=== PATIENT | male | born 1960 | race Two or more races ===

== ENCOUNTER 2017-08-02 08:43 | Emergency (ER) | payer MEDICARE ==
[~2017-08-02] VITALS: Ht 172.7 cm; Wt 75.5 kg
[2017-08-02 08:44] VITALS: BP 130/94
[2017-08-02] MEDS ORDERED: LISI5TAB7 PO (09:04)
[2017-08-02] MEDS ORDERED: SITA100T PO (09:04)
== END 2017-08-02 09:30 | disposition home or self-care (01) ==
LOC: ED 09:25
DX: S01.312D Laceration without foreign body of left ear, subsequent encounter (principal); E11.9 Type 2 diabetes mellitus without complications; X58.XXXD Exposure to other specified factors, subsequent encounter
CPT/HCPCS: 99281

== ENCOUNTER 2017-08-06 08:05 | Emergency (ER) | payer MEDICARE ==
[~2017-08-06] VITALS: Ht 172.7 cm; Wt 76.6 kg
[~2017-08-06 08:05] MED LIST: LISI5TAB7 PO; SITA100T PO
[2017-08-06 08:08] VITALS: BP 148/93
[2017-08-06] MEDS ORDERED: BACITRACIN ZINC OINT 500U/GM, 0.9 GM ONE (08:28)
[2017-08-06] MEDS ORDERED: KETOROLAC 30 MG/1 ML ONE (08:29)
[2017-08-06] MEDS ORDERED: KETOROLAC 30 MG/1 ML IM ONE (08:30)
== END 2017-08-06 10:15 | disposition home or self-care (01) ==
LOC: ED 09:01
DX: S01.312D Laceration without foreign body of left ear, subsequent encounter (principal)
CPT/HCPCS: 96372; 99283; J1885; 96374

== ENCOUNTER 2017-12-20 08:59 | Emergency (ER) | payer MEDICARE ==
[~2017-12-20] VITALS: Ht 172.7 cm; Wt 74.7 kg
[2017-12-20] MEDS ORDERED: SODIUM CHLORIDE FLUSH 10ML SYR IVF ONE (10:30)
[2017-12-20] MEDS ORDERED: DIPH,PERTUSS(ACELL),TET VAC/PF 0.5 ML IM-VACC ONE ×2 (10:30→10:51)
[2017-12-20] MEDS ORDERED: AMPICILLIN/SULBACTAM 3 GM in SODIUM CHLORIDE 0.9% 100 ML IVPB ONE (10:30)
[2017-12-20] MEDS ORDERED: MORPHINE SULFATE 4 MG/ML, 1ML ONE ×2 (10:51→11:37)
[2017-12-20] MEDS: MORPHINE SULFATE 4 MG/ML, 1ML IV PRN ×2 (10:59→11:42)
[2017-12-20 11:05] LABS: BASOPHILS # (AUTO) 0.04 x10^3/uL (0-0.1); BASOPHILS % (AUTO) 1 % (0-1); EOSINOPHILS # (AUTO) 0.08 x10^3/uL (0-0.4); EOSINOPHILS % (AUTO) 1 % (1-7); HCT (SEDRATE) 45.1 % (39.2-51.8); LYMPHOCYTES # (AUTO) 1.31 x10^3/uL (1-3.4); LYMPHOCYTES % (AUTO) 15 % (22-44); MD NO; MEAN CORPUSCULAR HEMOGLOBIN 33.4 pg (27.5-34.5); MEAN CORPUSCULAR HGB CONC 35.2 g/dL (33.2-36.2); MEAN CORPUSCULAR VOLUME 94.9 fL (81-97); MEAN PLATELET VOLUME 8.7 fL (7.4-10.4); MONOCYTES # (AUTO) 0.85 x10^3/uL (0.2-0.8); MONOCYTES % (AUTO) 10 % (2-9); NEUTROPHILS # (AUTO) 6.36 x10^3/uL (1.8-6.8); NEUTROPHILS % (AUTO) 74 % (42-75); PLATELET COUNT 305 x10^3/uL (130-400); RED BLOOD COUNT 4.76 x10^6/uL (4.38-5.82); RED CELL DISTRIBUTION WIDTH 13.4 % (9.4-14.8)
[2017-12-20 11:17] LABS: ALBUMIN 3.4 g/dL (3.4-5.0); ANION GAP 8 mmol/L (5-15); CALCIUM 8.5 mg/dL (8.5-10.1); CHLORIDE 103 mmol/L (98-107)
[2017-12-20 11:43] LABS: SEDIMENTATION RATE 24 mm/hr (0-10)
[2017-12-20] MEDS ORDERED: AMPICILLIN/SULBACTAM 3 GM in SODIUM CHLORIDE 0.9% 100 ML IV ONE (12:30)
[2017-12-20 13:00] VITALS: BP 127/81
== END 2017-12-20 13:04 | disposition home or self-care (01) ==
LOC: ED 12:50
DX: L03.031 Cellulitis of right toe (principal); L89.892 Pressure ulcer of other site, stage 2; E11.9 Type 2 diabetes mellitus without complications; F17.200 Nicotine dependence, unspecified, uncomplicated
CPT/HCPCS: 36415; 73660; 80048; 82040; 83605; 85025; 85651; 86140; 87040; 90471; 90715; 96365; 96375; 96376; 99285; J0295

== ENCOUNTER 2017-12-26 08:49 | Emergency (ER) | payer MEDICARE ==
[~2017-12-26] VITALS: Ht 172.7 cm; Wt 75.2 kg
[2017-12-26 08:53] VITALS: BP 116/81
[2017-12-26] MEDS ORDERED: SITA100T PO (09:37)
[2017-12-26] MEDS ORDERED: METF500T4 PO (09:37)
[2017-12-26] MEDS ORDERED: GLIP10TA13 PO (09:37)
[2017-12-26] MEDS ORDERED: AMPICILLIN/SULBACTAM 3 GM IM ONE (10:00)
== END 2017-12-26 11:24 | disposition home or self-care (01) ==
LOC: ED 10:49
DX: L03.031 Cellulitis of right toe (principal); E11.621 Type 2 diabetes mellitus with foot ulcer; F17.200 Nicotine dependence, unspecified, uncomplicated
CPT/HCPCS: 73660; 96372; 99284; J0295; 99283

== ENCOUNTER 2018-01-02 21:37 | Emergency (ER) | payer MEDICARE ==
[~2018-01-02] VITALS: Ht 172.7 cm; Wt 75.0 kg
[~2018-01-02 21:37] MED LIST changes: +GLIP10TA13 PO; +METF500T4 PO
[2018-01-02 21:40] VITALS: BP 146/76
== END 2018-01-02 22:21 | disposition left against medical advice (07) ==
LOC: ED 22:15
DX: S90.821A Blister (nonthermal), right foot, initial encounter (principal); E11.9 Type 2 diabetes mellitus without complications; Z53.21 Procedure and treatment not carried out due to patient leaving prior to being seen by health care provider; X58.XXXA Exposure to other specified factors, initial encounter; Y93.89 Activity, other specified; Y92.89 Other specified places as the place of occurrence of the external cause; Y99.8 Other external cause status

== ENCOUNTER 2018-01-04 07:15 | Inpatient (IN) | payer MEDICARE ==
[~2018-01-04] VITALS: Ht 172.7 cm; Wt 79.1 kg
[~2018-01-04 07:15] MED LIST changes: -METF500T4 PO; +METF500T5 PO
[2018-01-04] MEDS ORDERED: HYDROcodone/APAP 5/325 TABLET ONE (07:52)
[2018-01-04] MEDS ORDERED: SODIUM CHLORIDE 0.9% 1,000 ML IV ONE (07:53)
[2018-01-04] MEDS ORDERED: VANCOMYCIN PER PHARMACY MC ONE (08:00)
[2018-01-04] MEDS ORDERED: AMPICILLIN/SULBACTAM 3 GM in SODIUM CHLORIDE 0.9% 100 ML IVPB ONE (08:00)
[2018-01-04] MEDS ORDERED: SODIUM CHLORIDE FLUSH 10ML SYR IVF ONE (08:00)
[2018-01-04] MEDS ORDERED: HYDROcodone/APAP 5/325 TABLET PO ONE (08:00)
[2018-01-04 08:23] LABS: ALANINE AMINOTRANSFERASE 22 U/L (12-78); ALBUMIN 3.6 g/dL (3.4-5.0); ANION GAP 5 mmol/L (5-15); CALCIUM 8.8 mg/dL (8.5-10.1); CHLORIDE 99 mmol/L (98-107); CREATININE 1.13 mg/dL (0.7-1.3)
[2018-01-04 08:26] LABS: BASOPHILS # (AUTO) 0.04 x10^3/uL (0-0.1); BASOPHILS % (AUTO) 1 % (0-1); EOSINOPHILS % (AUTO) 2 % (1-7); HCT (SEDRATE) 45.4 % (39.2-51.8); LYMPHOCYTES # (AUTO) 1.13 x10^3/uL (1-3.4); LYMPHOCYTES % (AUTO) 16 % (22-44); MD NO; MEAN CORPUSCULAR HEMOGLOBIN 32.5 pg (27.5-34.5); MEAN CORPUSCULAR HGB CONC 34.2 g/dL (33.2-36.2); MEAN CORPUSCULAR VOLUME 95.1 fL (81-97); MEAN PLATELET VOLUME 8.7 fL (7.4-10.4); MONOCYTES % (AUTO) 10 % (2-9); NEUTROPHILS # (AUTO) 5.04 x10^3/uL (1.8-6.8); NEUTROPHILS % (AUTO) 72 % (42-75); PLATELET COUNT 344 x10^3/uL (130-400); RED BLOOD COUNT 4.78 x10^6/uL (4.38-5.82); RED CELL DISTRIBUTION WIDTH 12.9 % (9.4-14.8)
[2018-01-04 08:30] LABS: ALKALINE PHOSPHATASE 106 U/L (45-117); BILIRUBIN,TOTAL 0.6 mg/dL (0.2-1.0)
[2018-01-04] MEDS ORDERED: VANCOMYCIN 1,500 MG in SODIUM CHLORIDE 0.9% 250 ML IV ONE (08:30)
[2018-01-04 08:36] LABS: HEMOGLOBIN A1C 9.8 % (4.2-6.3)
[2018-01-04] MEDS ORDERED: GADOBUTROL 7.5 MMOL/7.5 ML PFS ONE (08:44)
[2018-01-04] MEDS ORDERED: MORPHINE SULFATE 4 MG/ML, 1ML ONE (08:50)
[2018-01-04] MEDS ORDERED: MORPHINE SULFATE 4 MG/ML, 1ML IVPush ONE (09:00)
[2018-01-04 09:05] LABS: SEDIMENTATION RATE 24 mm/hr (0-10)
[2018-01-04] MEDS ORDERED: LISI-170 PO (09:31)
[2018-01-04 10:20] VITALS: BP 130/80
[2018-01-04] MEDS ORDERED: DEXTROSE 4 GM TAB.CHEW PO PRN (10:30)
[2018-01-04] MEDS ORDERED: BISACODYL 10 MG SUPP PR PRN (10:30)
[2018-01-04] MEDS ORDERED: HEPARIN 5,000 UNITS/ML, 1ML SQ SCH (10:30)
[2018-01-04] MEDS ORDERED: DEXTROSE 50%, 50ML SYRINGE IVPush PRN (10:30)
[2018-01-04] MEDS ORDERED: VANCOMYCIN PER PHARMACY MC PRN (10:30)
[2018-01-04] MEDS ORDERED: GLUCAGON 1 MG IM PRN (10:30)
[2018-01-04] MEDS ORDERED: hydrALAzine 20 MG/ML, 1ML IVPush PRN (10:30)
[2018-01-04 10:58] LABS: INTERNATIONAL NORMALIZED RATIO 1.04 (0.93-1.1); PROTHROMBIN TIME 10.7 Seconds (9.6-11.5)
[2018-01-04] MEDS ORDERED: PHARMACOKINETIC CONSULTATION MC ONE (11:00)
[2018-01-04] MEDS ORDERED: PHARMACOKINETIC MONITORING MC PRN (11:00)
[2018-01-04] MEDS: NICOTINE 21 MG/24 HR PATCH.TD24 TD SCH (11:11)
[2018-01-04] MEDS: SODIUM CHLORIDE FLUSH 10ML SYR IVF SCH ×2 (11:11→23:04)
[2018-01-04] MEDS: SODIUM CHLORIDE 0.9% 1,000 ML IV SCH ×3 (11:11→23:49)
[2018-01-04] MEDS: PIPERACILLIN/TAZO/PMX 3.375GM 50 ML IV SCH ×2 (11:44→23:04)
[2018-01-04] MEDS: INSULIN LISPRO 100 UNITS/ML, PEN SQ-INSULIN SCH ×3 (11:47→23:47)
[2018-01-04] MEDS: morphine SULFATE 10 MG/ML, 1ML IVPush PRN ×3 (11:47→23:04)
[2018-01-04 12:47] VITALS: BP 152/87
[2018-01-04] MEDS ORDERED: OXYcodone IR 5MG TABLET ONE (13:53)
[2018-01-04] MEDS: OXYcodone IR 5MG TABLET PO PRN ×3 (13:59→23:05)
[2018-01-04] MEDS ORDERED: MIDAZOLAM 1 MG/ML, 2ML ONE (19:15)
[2018-01-04] MEDS ORDERED: FENTANYL PF 100 MCG/2ML ONE ×2 (19:16→20:12)
[2018-01-04] MEDS ORDERED: PROPOFOL 10 MG/ML, 20ML ONE (19:24)
[2018-01-04] MEDS ORDERED: SUCCINYLCHOLINE 20 MG/ML, 10ML ONE (19:24)
[2018-01-04] MEDS ORDERED: CEFAZOLIN 1,000 MG ONE (19:24)
[2018-01-04] MEDS ORDERED: BUPIVACAINE/PF 0.25% INFIL ONE (19:30)
[2018-01-04] MEDS ORDERED: BUPIVACAINE/PF 0.25% ONE (19:44)
[2018-01-04] MEDS ORDERED: EPINEPHRINE 1 MG/ML, 1ML ONE (19:44)
[2018-01-04] MEDS ORDERED: HYDROmorphone 1 MG/ML, 1ML IV PRN (20:00)
[2018-01-04] MEDS ORDERED: hydrALAzine 20 MG/ML, 1ML IV PRN (20:00)
[2018-01-04] MEDS ORDERED: KETOROLAC 30 MG/1 ML IV PRN (20:00)
[2018-01-04] MEDS ORDERED: OXYcodone 5 MG/5 ML ORAL.SOL UDC PO PRN (20:00)
[2018-01-04] MEDS ORDERED: MEPERIDINE/PF 25MG/0.5ML IVPush PRN (20:00)
[2018-01-04] MEDS ORDERED: METOCLOPRAMIDE 5 MG/ML, 2ML IV PRN (20:00)
[2018-01-04] MEDS ORDERED: ALBUTEROL SULFATE 2.5 MG/3 ML NPPB PRN (20:00)
[2018-01-04] MEDS ORDERED: LABETALOL 5MG/ML, 20ML IV PRN (20:00)
[2018-01-04] MEDS ORDERED: ONDANSETRON 2MG/ML, 2ML IVPush PRN (20:00)
[2018-01-04] MEDS ORDERED: PROMETHAZINE 25 MG/ML, 1ML IV PRN (20:00)
[2018-01-04] MEDS ORDERED: OXYcodone 5 MG/5 ML ORAL.SOL UDC ONE (20:12)
[2018-01-04] MEDS: FENTANYL PF 100 MCG/2ML IV PRN ×2 (20:15→20:25)
[2018-01-04] MEDS ORDERED: HYDROmorphone 2 MG/ML, 1ML ONE (20:23)
[2018-01-04 20:59] VITALS: BP 128/86
[2018-01-04] MEDS: VANCOMYCIN 1,400 MG in SODIUM CHLORIDE 0.9% 250 ML IV SCH (23:48)
[2018-01-04] MEDS: INSULIN GLARGINE 100 UNITS/ML, PEN SQ-INSULIN SCH (23:48)
[2018-01-05] MEDS: HEPARIN 5,000 UNITS/ML, 1ML SQ SCH ×2 (00:50→07:37)
[2018-01-05] MEDS: morphine SULFATE 10 MG/ML, 1ML IVPush PRN ×2 (02:15→04:57)
[2018-01-05 02:29] VITALS: BP 113/70
[2018-01-05] MEDS: OXYcodone IR 5MG TABLET PO PRN ×5 (03:05→21:04)
[2018-01-05 05:08] VITALS: BP 129/82
[2018-01-05 05:36] LABS: BASOPHILS # (AUTO) 0.04 x10^3/uL (0-0.1); BASOPHILS % (AUTO) 1 % (0-1); EOSINOPHILS # (AUTO) 0.26 x10^3/uL (0-0.4); EOSINOPHILS % (AUTO) 3 % (1-7); LYMPHOCYTES # (AUTO) 1.75 x10^3/uL (1-3.4); LYMPHOCYTES % (AUTO) 21 % (22-44); MD NO; MEAN CORPUSCULAR HEMOGLOBIN 32.6 pg (27.5-34.5); MEAN CORPUSCULAR HGB CONC 33.9 g/dL (33.2-36.2); MEAN CORPUSCULAR VOLUME 96.2 fL (81-97); MEAN PLATELET VOLUME 8.8 fL (7.4-10.4); MONOCYTES # (AUTO) 0.82 x10^3/uL (0.2-0.8); MONOCYTES % (AUTO) 10 % (2-9); NEUTROPHILS # (AUTO) 5.65 x10^3/uL (1.8-6.8); NEUTROPHILS % (AUTO) 66 % (42-75); PLATELET COUNT 311 x10^3/uL (130-400); RED BLOOD COUNT 4.21 x10^6/uL (4.38-5.82); RED CELL DISTRIBUTION WIDTH 12.7 % (9.4-14.8)
[2018-01-05 05:45] LABS: CHLORIDE 104 mmol/L (98-107)
[2018-01-05] MEDS: PIPERACILLIN/TAZO/PMX 3.375GM 50 ML IV SCH ×2 (06:30→16:34)
[2018-01-05] MEDS: SODIUM CHLORIDE 0.9% 1,000 ML IV SCH ×2 (06:31→16:39)
[2018-01-05 06:44] LABS: ANION GAP 10 mmol/L (5-15); CALCIUM 8.4 mg/dL (8.5-10.1); CHOL/HDL RATIO 1.6; CHOLESTEROL, TOTAL 118 mg/dL (140-239); CREATININE 0.88 mg/dL (0.7-1.3); HDL CHOL % 64 % (26-37); HDL CHOLESTEROL (DIRECT) 75 mg/dL (40-60); LDL CHOLESTEROL,CALCULATED 27 mg/dL (54-169); LDL/HDL RATIO 0.4 (0.5-3.0); TRIGLYCERIDES 79 mg/dL (50-200); VLDL CHOLESTEROL 16 mg/dL (0-25)
[2018-01-05 07:14] VITALS: BP 125/79
[2018-01-05] MEDS ORDERED: HYDROmorphone 1 MG/ML, 1ML IV ONE (07:30)
[2018-01-05] MEDS ORDERED: HYDROmorphone 2 MG/ML, 1ML ONE ×4 (07:33→19:22)
[2018-01-05] MEDS: LISINOPRIL 10 MG TABLET PO SCH (07:37)
[2018-01-05] MEDS: SODIUM CHLORIDE FLUSH 10ML SYR IVF SCH ×2 (07:37→21:16)
[2018-01-05] MEDS: INSULIN LISPRO 100 UNITS/ML, PEN SQ-INSULIN SCH ×4 (07:43→21:16)
[2018-01-05] MEDS ORDERED: HYDROmorphone 1 MG/ML, 1ML IM PRN (09:00)
[2018-01-05] MEDS: HYDROmorphone 1 MG/ML, 1ML IV PRN ×3 (10:06→19:26)
[2018-01-05] MEDS: NICOTINE 21 MG/24 HR PATCH.TD24 TD SCH (10:07)
[2018-01-05] MEDS: VANCOMYCIN 1,400 MG in SODIUM CHLORIDE 0.9% 250 ML IV SCH (11:46)
[2018-01-05 12:35] VITALS: BP 111/68
[2018-01-05 20:58] VITALS: BP 110/69
[2018-01-05] MEDS: ACETAMINOPHEN 325 MG TABLET PO PRN (21:04)
[2018-01-05] MEDS: INSULIN GLARGINE 100 UNITS/ML, PEN SQ-INSULIN SCH (21:16)
[2018-01-06] MEDS ORDERED: HYDROmorphone 2 MG/ML, 1ML ONE ×6 (00:07→21:29)
[2018-01-06] MEDS: PIPERACILLIN/TAZO/PMX 3.375GM 50 ML IV SCH ×3 (00:12→16:22)
[2018-01-06] MEDS: HYDROmorphone 1 MG/ML, 1ML IV PRN ×6 (00:14→21:32)
[2018-01-06] MEDS: SODIUM CHLORIDE 0.9% 1,000 ML IV SCH ×3 (00:19→19:44)
[2018-01-06] MEDS: VANCOMYCIN 1,800 MG in SODIUM CHLORIDE 0.9% 250 ML IV SCH ×2 (00:54→13:13)
[2018-01-06 01:48] VITALS: BP 123/77
[2018-01-06] MEDS: OXYcodone IR 5MG TABLET PO PRN ×5 (02:26→20:01)
[2018-01-06] MEDS: POLYETHYLENE GLYCOL 17 GM PACKET PO PRN ×2 (02:32→20:37)
[2018-01-06 04:50] LABS: BASOPHILS # (AUTO) 0.03 x10^3/uL (0-0.1); BASOPHILS % (AUTO) 0 % (0-1); EOSINOPHILS # (AUTO) 0.29 x10^3/uL (0-0.4); EOSINOPHILS % (AUTO) 4 % (1-7); LYMPHOCYTES # (AUTO) 1.66 x10^3/uL (1-3.4); LYMPHOCYTES % (AUTO) 25 % (22-44); MD NO; MEAN CORPUSCULAR HEMOGLOBIN 32.3 pg (27.5-34.5); MEAN CORPUSCULAR HGB CONC 33.7 g/dL (33.2-36.2); MEAN CORPUSCULAR VOLUME 95.9 fL (81-97); MEAN PLATELET VOLUME 8.4 fL (7.4-10.4); MONOCYTES # (AUTO) 0.78 x10^3/uL (0.2-0.8); MONOCYTES % (AUTO) 12 % (2-9); NEUTROPHILS # (AUTO) 3.85 x10^3/uL (1.8-6.8); NEUTROPHILS % (AUTO) 58 % (42-75); PLATELET COUNT 322 x10^3/uL (130-400); RED CELL DISTRIBUTION WIDTH 12.9 % (9.4-14.8)
[2018-01-06 04:58] LABS: ALBUMIN 2.7 g/dL (3.4-5.0); ANION GAP 5 mmol/L (5-15); CALCIUM 8.8 mg/dL (8.5-10.1); CHLORIDE 106 mmol/L (98-107); CREATININE 0.82 mg/dL (0.7-1.3)
[2018-01-06] MEDS: INSULIN LISPRO 100 UNITS/ML, PEN SQ-INSULIN SCH ×4 (07:00→20:36)
[2018-01-06 07:13] VITALS: BP 121/79
[2018-01-06] MEDS: SODIUM CHLORIDE FLUSH 10ML SYR IVF SCH ×2 (07:44→20:36)
[2018-01-06] MEDS: LISINOPRIL 10 MG TABLET PO SCH (07:44)
[2018-01-06] MEDS ORDERED: LIDOCAINE-MPF 1%, 2ML ONE (09:19)
[2018-01-06] MEDS: NICOTINE 21 MG/24 HR PATCH.TD24 TD SCH (10:30)
[2018-01-06] MEDS: ACETAMINOPHEN 325 MG TABLET PO PRN (10:54)
[2018-01-06 12:53] VITALS: BP 123/79
[2018-01-06 19:21] VITALS: BP 142/87
[2018-01-06] MEDS: INSULIN GLARGINE 100 UNITS/ML, PEN SQ-INSULIN SCH (20:36)
[2018-01-07] MEDS: OXYcodone IR 5MG TABLET PO PRN ×6 (00:15→20:50)
[2018-01-07] MEDS: PIPERACILLIN/TAZO/PMX 3.375GM 50 ML IV SCH ×3 (00:23→16:12)
[2018-01-07] MEDS: VANCOMYCIN 1,800 MG in SODIUM CHLORIDE 0.9% 250 ML IV SCH ×2 (01:09→16:46)
[2018-01-07 01:19] VITALS: BP 122/76
[2018-01-07] MEDS ORDERED: HYDROmorphone 2 MG/ML, 1ML ONE ×6 (01:40→22:40)
[2018-01-07] MEDS: HYDROmorphone 1 MG/ML, 1ML IV PRN ×6 (01:42→22:43)
[2018-01-07] MEDS: SODIUM CHLORIDE 0.9% 1,000 ML IV SCH ×3 (04:23→18:21)
[2018-01-07 04:31] LABS: BASOPHILS # (AUTO) 0.02 x10^3/uL (0-0.1); BASOPHILS % (AUTO) 0 % (0-1); EOSINOPHILS % (AUTO) 3 % (1-7); LYMPHOCYTES # (AUTO) 1.47 x10^3/uL (1-3.4); LYMPHOCYTES % (AUTO) 21 % (22-44); MD NO; MEAN CORPUSCULAR HEMOGLOBIN 32.7 pg (27.5-34.5); MEAN CORPUSCULAR HGB CONC 34.1 g/dL (33.2-36.2); MEAN CORPUSCULAR VOLUME 96.1 fL (81-97); MEAN PLATELET VOLUME 8.5 fL (7.4-10.4); MONOCYTES # (AUTO) 0.63 x10^3/uL (0.2-0.8); MONOCYTES % (AUTO) 9 % (2-9); NEUTROPHILS # (AUTO) 4.54 x10^3/uL (1.8-6.8); NEUTROPHILS % (AUTO) 66 % (42-75); PLATELET COUNT 302 x10^3/uL (130-400); RED BLOOD COUNT 3.99 x10^6/uL (4.38-5.82); RED CELL DISTRIBUTION WIDTH 12.4 % (9.4-14.8)
[2018-01-07 04:44] LABS: ALBUMIN 2.8 g/dL (3.4-5.0); ANION GAP 6 mmol/L (5-15); CALCIUM 8.4 mg/dL (8.5-10.1); CHLORIDE 106 mmol/L (98-107); CREATININE 0.89 mg/dL (0.7-1.3)
[2018-01-07] MEDS: INSULIN LISPRO 100 UNITS/ML, PEN SQ-INSULIN SCH ×4 (07:45→20:10)
[2018-01-07 07:47] VITALS: BP 124/78
[2018-01-07] MEDS: LISINOPRIL 10 MG TABLET PO SCH (07:57)
[2018-01-07] MEDS: INSULIN GLARGINE 100 UNITS/ML, PEN SQ-INSULIN SCH ×2 (08:36→20:10)
[2018-01-07] MEDS: SODIUM CHLORIDE FLUSH 10ML SYR IVF SCH ×2 (08:37→20:09)
[2018-01-07] MEDS: NICOTINE 21 MG/24 HR PATCH.TD24 TD SCH (08:39)
[2018-01-07 13:29] VITALS: BP 121/75
[2018-01-07 22:02] VITALS: BP 129/81
[2018-01-08] MEDS: SODIUM CHLORIDE 0.9% 1,000 ML IV SCH ×4 (00:08→21:04)
[2018-01-08] MEDS: PIPERACILLIN/TAZO/PMX 3.375GM 50 ML IV SCH ×3 (00:09→17:07)
[2018-01-08] MEDS: OXYcodone IR 5MG TABLET PO PRN ×6 (01:24→23:57)
[2018-01-08] MEDS ORDERED: HYDROmorphone 2 MG/ML, 1ML ONE (02:57)
[2018-01-08 03:07] VITALS: BP 122/81
[2018-01-08] MEDS: HYDROmorphone 2 MG/ML, 1ML IV PRN ×4 (03:10→15:52)
[2018-01-08] MEDS: VANCOMYCIN 1,800 MG in SODIUM CHLORIDE 0.9% 250 ML IV SCH (04:07)
[2018-01-08 07:28] VITALS: BP 125/80
[2018-01-08] MEDS: INSULIN LISPRO 100 UNITS/ML, PEN SQ-INSULIN SCH ×4 (08:03→21:05)
[2018-01-08] MEDS: LISINOPRIL 10 MG TABLET PO SCH (08:04)
[2018-01-08] MEDS: INSULIN GLARGINE 100 UNITS/ML, PEN SQ-INSULIN SCH ×2 (08:04→21:05)
[2018-01-08] MEDS: SODIUM CHLORIDE FLUSH 10ML SYR IVF SCH ×2 (08:10→21:05)
[2018-01-08] MEDS: NICOTINE 21 MG/24 HR PATCH.TD24 TD SCH (09:43)
[2018-01-08 13:19] VITALS: BP 147/89
[2018-01-08] MEDS: POLYETHYLENE GLYCOL 17 GM PACKET PO PRN (14:16)
[2018-01-08] MEDS ORDERED: OxyconTIN ER 10 MG TAB.ER PO SCH (16:00)
[2018-01-08 20:45] VITALS: BP 136/83
[2018-01-08] MEDS: OxyconTIN ER 10 MG TAB.ER PO SCH (21:04)
[2018-01-09] MEDS: PIPERACILLIN/TAZO/PMX 3.375GM 50 ML IV SCH ×2 (01:18→07:34)
[2018-01-09 03:06] VITALS: BP 124/83
[2018-01-09] MEDS: SODIUM CHLORIDE 0.9% 1,000 ML IV SCH ×2 (03:46→10:31)
[2018-01-09] MEDS: OXYcodone IR 5MG TABLET PO PRN (06:27)
[2018-01-09 07:10] VITALS: BP 150/89
[2018-01-09] MEDS ORDERED: INSULIN GLARGINE 100 UNITS/ML, PEN SQ-INSULIN SCH (07:30)
[2018-01-09] MEDS: INSULIN LISPRO 100 UNITS/ML, PEN SQ-INSULIN SCH ×2 (07:31→10:34)
[2018-01-09] MEDS: SODIUM CHLORIDE FLUSH 10ML SYR IVF SCH (07:33)
[2018-01-09] MEDS: LISINOPRIL 10 MG TABLET PO SCH (07:33)
[2018-01-09] MEDS: OxyconTIN ER 10 MG TAB.ER PO SCH (07:33)
[2018-01-09] MEDS: NICOTINE 21 MG/24 HR PATCH.TD24 TD SCH (07:34)
[2018-01-09 12:15] VITALS: BP 128/77
== END 2018-01-09 14:30 | disposition left against medical advice (07) | DRG 981 ==
LOC: ED 08:01 → EDIP 08:37 → 3NW 09:23
PROVIDERS: ADMIT Internal Medicine; ATTEND Internal Medicine
PROC: 0KBV0ZZ Excision of Right Foot Muscle, Open Approach (ICD-10-PCS; principal; 2018-01-04 19:00)
PROC: 02HV33Z Insertion of Infusion Device into Superior Vena Cava, Percutaneous Approach (ICD-10-PCS; 2018-01-06)
PROC: B548ZZA Ultrasonography of Superior Vena Cava, Guidance (ICD-10-PCS; 2018-01-06)
PROC: B5181ZA Fluoroscopy of Superior Vena Cava using Low Osmolar Contrast, Guidance (ICD-10-PCS; 2018-01-06)
DX: E11.69 Type 2 diabetes mellitus with other specified complication (principal); E43 Unspecified severe protein-calorie malnutrition; M86.171 Other acute osteomyelitis, right ankle and foot; L02.611 Cutaneous abscess of right foot; E87.1 Hypo-osmolality and hyponatremia; L03.031 Cellulitis of right toe; E11.621 Type 2 diabetes mellitus with foot ulcer; E11.649 Type 2 diabetes mellitus with hypoglycemia without coma; L97.519 Non-pressure chronic ulcer of other part of right foot with unspecified severity; E11.622 Type 2 diabetes mellitus with other skin ulcer; M19.90 Unspecified osteoarthritis, unspecified site; E11.65 Type 2 diabetes mellitus with hyperglycemia; Z66 Do not resuscitate; I10 Essential (primary) hypertension; F17.210 Nicotine dependence, cigarettes, uncomplicated; Z79.2 Long term (current) use of antibiotics; Z83.3 Family history of diabetes mellitus; Z79.899 Other long term (current) drug therapy; E11.00 Type 2 diabetes mellitus with hyperosmolarity without nonketotic hyperglycemic-hyperosmolar coma (NKHHC)
CPT/HCPCS: 36415; 36569; 76937; 77001; 80048; 80053; 80061; 80202; 82040; 82962; 83036; 85025; 85610; 85651; 86140; 87040; 87070; 87075; 87077; 87186; 87205; 93970; 96374; A9585; J0171; J0690; J1170; J1644; J2250; J2543; J2704; J3010; J3370; J3490; C1751; J0330; J1815; J2270; J7030; J7050

== ENCOUNTER 2018-05-23 19:25 | Emergency (ER) | payer MEDICARE ==
[~2018-05-23] VITALS: Ht 172.7 cm; Wt 73.9 kg
[~2018-05-23 19:25] MED LIST changes: +LISI-170 PO; +METF500T17 PO; -METF500T5 PO
[2018-05-23 19:27] VITALS: BP 114/67
[2018-05-23] MEDS ORDERED: HYDROcodone/APAP 5/325 TABLET ONE (19:50)
[2018-05-23] MEDS ORDERED: METHOCARBAMOL 750 MG TABLET ONE (19:50)
[2018-05-23] MEDS ORDERED: KETOROLAC 30 MG/1 ML ONE (19:50)
[2018-05-23] MEDS ORDERED: KETOROLAC 30 MG/1 ML IM ONE (20:00)
[2018-05-23] MEDS ORDERED: HYDROcodone/APAP 5/325 TABLET PO ONE (20:00)
[2018-05-23] MEDS ORDERED: METHOCARBAMOL 750 MG TABLET PO ONE (20:00)
== END 2018-05-23 21:00 | disposition left against medical advice (07) ==
LOC: ED 20:54
DX: S39.012A Strain of muscle, fascia and tendon of lower back, initial encounter (principal); E11.9 Type 2 diabetes mellitus without complications; I10 Essential (primary) hypertension; Z59.0 Homelessness; F11.20 Opioid dependence, uncomplicated; X58.XXXA Exposure to other specified factors, initial encounter; Y93.89 Activity, other specified; Y99.8 Other external cause status; Y92.89 Other specified places as the place of occurrence of the external cause
CPT/HCPCS: 96372; 99283; J1885

== ENCOUNTER 2018-07-19 21:22 | Emergency (ER) | payer MEDICARE ==
[~2018-07-19] VITALS: Ht 177.8 cm; Wt 70.0 kg
[2018-07-19 21:45] VITALS: BP 116/80
[2018-07-19] MEDS ORDERED: ACETAMINOPHEN 325 MG TABLET PO ONE (22:00)
== END 2018-07-19 22:13 | disposition left against medical advice (07) ==
LOC: ED 22:07
DX: S09.90XA Unspecified injury of head, initial encounter (principal); S00.81XA Abrasion of other part of head, initial encounter; E11.9 Type 2 diabetes mellitus without complications; I10 Essential (primary) hypertension; X58.XXXA Exposure to other specified factors, initial encounter; Y93.89 Activity, other specified; Y92.89 Other specified places as the place of occurrence of the external cause; Y99.8 Other external cause status
CPT/HCPCS: 99282